=== PATIENT | female | born 1990 | race Caucasian/White ===

== ENCOUNTER 2022-09-20 10:54 | Outpatient (CLI) | payer BC, SELFPAY | END 2022-09-20 10:55 | disposition home or self-care (01) | LOC: FRMREF 10:55 | PROVIDERS: Visit Provider Registered Nurse | DX: Z01.419 Encounter for gynecological examination (general) (routine) without abnormal findings (principal); Z13.6 Encounter for screening for cardiovascular disorders | CPT/HCPCS: 80061 ==

== ENCOUNTER 2023-01-02 13:37 | Outpatient (CLI) | payer BC, SELFPAY ==
--- NOTE | 2023-01-02 14:00 | CRLHL7_ITS ---
For Patients: As a result of the Cures Act, medical imaging exams and procedure reports are released immediately into your electronic medical record. You may view this report before your referring provider. If you have questions, please contact your health care provider. INDICATION: First trimester scan, establish dates. COMPARISON: None. TECHNIQUE: Real-time salmeron-scale imaging of the pelvis was performed. FINDINGS: Sonographic imaging demonstrates a single living intrauterine gestation. The embryo demonstrates a regular cardiac rate measuring 163 beats per minute. The embryo`s crown-rump length measurement of 1.4 cm corresponds to a gestational age of 7 weeks 4 days with a sonographic due date of 08/17/2023. There is a normal-appearing yolk sac. There are no gross abnormalities noted within the embryo at this early state of development. The gestational sac has a normal appearance. There is a 2.6 x 0.5 x 2.5 cm perigestational hemorrhage. The amount of fluid within the sac appears appropriate for gestational age. The cervix is closed. The myometrium appears normal. The ovaries are of normal size. Corpus luteal cyst left ovary. There are no suspicious fluid collections noted in the cul-de-sac. IMPRESSION: Single living intrauterine with sonographic gestational age 7 weeks 4 days and sonographic due date 08/17/2023. Dictated by Guillermo Hendrickson MD @ 01/02/2023 3:21:45 PM (Electronically Signed)
== END 2023-01-02 13:38 | disposition home or self-care (01) ==
LOC: US 13:39
PROVIDERS: PCP Registered Nurse; Visit Provider Registered Nurse
DX: Z34.91 Encounter for supervision of normal pregnancy, unspecified, first trimester (principal); Z3A.08 8 weeks gestation of pregnancy
CPT/HCPCS: 76817; 86592; 86703; 86762; 86787; 86803; 86850; 86900; 86901; 87086; 87340; 87491; 87591

== ENCOUNTER 2023-01-02 14:42 | Outpatient (CLI) | payer BC, SELFPAY ==
[2023-01-02 19:04] LABS: Chlamydia DNA Amplified* NOT DETECTED (No Detected); GC DNA Amplified* NOT DETECTED (No Detected)
== END 2023-01-02 14:43 | disposition home or self-care (01) ==
PROVIDERS: PCP Registered Nurse; Visit Provider Registered Nurse
DX: Z34.91 Encounter for supervision of normal pregnancy, unspecified, first trimester (principal); Z3A.08 8 weeks gestation of pregnancy
CPT/HCPCS: 86592; 86703; 86762; 86787; 86803; 86850; 86900; 86901; 87086; 87340; 87491; 87591

== ENCOUNTER 2023-03-28 11:56 | Outpatient (CLI) | payer BC, SELFPAY | END 2023-03-28 11:57 | disposition home or self-care (01) | LOC: FRMREF 11:58 | PROVIDERS: Visit Provider Registered Nurse | DX: Z34.92 Encounter for supervision of normal pregnancy, unspecified, second trimester (principal); Z3A.19 19 weeks gestation of pregnancy | CPT/HCPCS: 87086 ==

== ENCOUNTER 2023-05-22 13:34 | Outpatient (CLI) | payer BC, SELFPAY | END 2023-05-22 13:35 | disposition home or self-care (01) | LOC: NFLDREF 05-26 05:27 | PROVIDERS: Visit Provider Advanced Practice Midwife | DX: Z34.93 Encounter for supervision of normal pregnancy, unspecified, third trimester (principal); B00.9 Herpesviral infection, unspecified; O34.211 Maternal care for low transverse scar from previous cesarean delivery; Z3A.27 27 weeks gestation of pregnancy | CPT/HCPCS: 86592 ==

== ENCOUNTER 2023-06-26 13:41 | Outpatient (CLI) | payer BC, SELFPAY ==
--- NOTE | 2023-06-26 14:00 | CRLHL7_ITS ---
For Patients: As a result of the Century Cures Act, medical imaging exams and procedure reports are released immediately into your electronic medical record. You may view this report before your referring provider. If you have questions, please contact your health care provider. INDICATION: Third trimester scan, evaluate growth. Follow-up cord insertion into the placenta. COMPARISON: 03/25/2023 TECHNIQUE: Real time salmeron scale imaging of the fetus was performed. FINDINGS: Sonographic imaging demonstrates a single living intrauterine gestation. Fetus demonstrates a regular cardiac rate of 131 beats per minute. Fetus has a vertex position. The placenta lies fundal posterior. Amniotic fluid volume appears normal and there is a single deepest vertical pocket: 4.4 cm. The estimated weight is 1999gm which lies at the 39th %. On the prior OB ultrasound exam dated 03/25/2023 the estimated weight was at the 63rd%. BPD 32nd percentile. HC 14th percentile. AC 49th percentile. FL 41st percentile. The HC/AC ratio measures 1.03 range (0.96-1.12). IMPRESSION: Sonographic gestational age 32 weeks 4 days and sonographic due date 08/17/2023. Good correlation with dates. Normal interval growth. Estimated weight 39th percentile. Abdominal circumference 49th percentile. Placental cord insertion 1.9 cm from the internal cervical os. Previously, this measured 7 millimeters. Dictated by Guillermo Hendrickson MD @ 06/27/2023 10:39:43 AM (Electronically Signed)
== END 2023-06-26 13:42 | disposition home or self-care (01) ==
LOC: US 13:42
PROVIDERS: Visit Provider Obstetrics & Gynecology
DX: Z34.93 Encounter for supervision of normal pregnancy, unspecified, third trimester (principal); O43.193 Other malformation of placenta, third trimester; Z3A.32 32 weeks gestation of pregnancy
CPT/HCPCS: 76816

== ENCOUNTER 2023-07-17 14:26 | Outpatient (CLI) | payer BC, SELFPAY | END 2023-07-17 14:27 | disposition home or self-care (01) | LOC: NFLDREF 07-21 06:28 | PROVIDERS: Visit Provider Advanced Practice Midwife | DX: Z34.83 Encounter for supervision of other normal pregnancy, third trimester (principal) | CPT/HCPCS: 87081; 87653 ==

== ENCOUNTER 2023-07-24 12:41 | Outpatient (CLI) | payer BC, SELFPAY ==
--- NOTE | 2023-07-24 13:00 | CRLHL7_ITS ---
For Patients: As a result of the Century Cures Act, medical imaging exams and procedure reports are released immediately into your electronic medical record. You may view this report before your referring provider. If you have questions, please contact your health care provider. INDICATION: Advanced maternal age. Check growth. TECHNIQUE: Limited transabdominal two-dimensional salmeron-scale ultrasound examination. COMPARISON: 06/26/2023 FINDINGS: There is a living fetus in vertex lie with gestational age of 36 weeks 4 days by LMP and 35 weeks 2 days by today`s measurements. EDC based on LMP is 08/17/2023. BPD: 8.5 cm, 34 weeks 2 days Head circumference: 31.4 cm, 35 weeks 1 day Abdominal circumference: 33.4 cm, 37 weeks 2 days Femur length: 6.7 cm, 34 weeks 3 days The weight is estimated at 2828 grams, the 39th percentile. The biophysical profile score is 8/8. The heart rate is measured at 129 beats per minute and the rhythm appears regular. The amniotic fluid volume is within normal limits with single deepest pocket or 6.7 cm. The placenta is fundal/posterior and superior to the cervical os. There is no evidence of previa. IMPRESSION: 1. Living fetus in vertex lie with gestational age of 36 weeks 4 days by LMP and 35 weeks 2 days by today`s measurements. EDC based on LMP is 08/17/2023. 2. weight estimated at 2828 grams, the 39th percentile. 3. Biophysical profile score is 8/8. Dictated by Josh Lindsey MD @ 07/24/2023 3:47:18 PM (Electronically Signed)
== END 2023-07-24 12:42 | disposition home or self-care (01) ==
LOC: US 12:41
PROVIDERS: Visit Provider Advanced Practice Midwife
DX: O09.523 Supervision of elderly multigravida, third trimester (principal); Z3A.35 35 weeks gestation of pregnancy
CPT/HCPCS: 76816; 76819

== ENCOUNTER 2023-08-06 00:25 | Inpatient (IN) | payer BC, SELFPAY ==
[2023-08-05] VITALS (26 sets, daily range): BP systolic 128–137; BP diastolic 82–95; PULSE 68–107; TEMP 37.1; O2SAT 93–99
[2023-08-05] MEDS: LACTATED RINGERS 1000 ML 1,000 ML IV (20:45)
[2023-08-05] MEDS: hydrOXYzine pamoate 25 MG CAPSULE 100 MG PO (22:16)
[2023-08-05] MEDS: MORPHINE 10 MG/ML inj IM (22:17)
[2023-08-05] MEDS: LACTATED RINGERS 1000 ML 1,000 ML 500 ML IV (22:58)
[2023-08-06] VITALS (17 sets, daily range): BP systolic 97–123; BP diastolic 59–86; PULSE 70–102; RESP 16–18; TEMP 36.6–37.2; O2SAT 96–99; BMI 28.5
--- NOTE | 2023-08-06 00:48 | P.LDBA_ITS ---
Subjective History of Present Illness Date Seen: 08/06/23 Narrative: Uzma is being admitted to Labor and Delivery for labor. She is a 33 year old at 38.3 weeks gestation. She has a history of C/S and desires a TOLAC. Her full history and physical was dictated by Onofre Martins CNM on 07/31/23. Please see this for details. She arrived this evening complaining of frequent contractions although at that time she was able to talk easily through them and only felt some of her contractions. She was sienna very frequently about every 1-1.5 minutes on arrival. She was given a fluid bolus and contractions then spaced out to every 2-3 minutes but once the fluid bolus stopped her contractions returned in frequency and continued to intensify. Discussed Morphine and Vistaril for rest and she agreed to this. She had made minimal cervical change at that time. Not long after Morphine and Vistaril was given FHR showed late variables which resolved with position change and an additional fluid bolus. Decision was made to admit her for labor and possible augmentation if needed. Repeat cervical exam showed she was 4/100%/-2 with a bulging bag. On admission her initial BP was 137/94 with recheck in 15 minutes BP was 128/82. Specific Issues/Plans (2 full term deliveries, 2 elective terminations, has 3 children --1 set of twins--) Spouse: Chan. Children: Kris Valentin Ella. Baby: Dariel Cedeño 07/31/23 H& P done by Onofre Martins 1. History of delivery. (1st NVD. Twin delivery: 1st vaginal, 2nd ) -Desires vaginal after -TOLAC consent: Consult completed on 07/12/23, consent signed 07/18 -USN for growth at 32 weeks due to marginal insertion of the cord: EFW:39th percentile, umbilical cord insertion described to be 1.9cm from placental edg e/eccentric. -Chance of successful : 87.2% -Growth 36 wks: EFW 39% 2. Advanced maternal age Genetic screening: Declined Level 2 ultrasound recommended. Order placed. 3. History of depression. Doing well at 1st OB. GLENIS 1, PHQ 2. 4. Marginal cord insertion on 20 week level 2 FAS Recommend 28-32 week growth then Q4 weeks: 32 wks: EFW 39%, cord 1.9cm from edge 36 wks: ordered with BPP Consider weekly BPP or NST at 36 wks - declines. 5. Dark mole left upper abdomen. Referral placed for DERM. 6. Hx of breast augmentation Covid: vaccinated, not boosted. Recommended. Flu: 03/28/23 Tdap: 06/12/23 RSV: OB - Problem Based A/P Additional Plan (1) Pain during labor: Status: Acute (2) Desires (vaginal after ) trial: Status: Acute (3) Advanced maternal age in multigravida: Status: Acute Plan Assessment:?? at 38.3 weeks gestation?? GBS negative? Patient is coping well with challenges of labor.?? Labor type: Spontaneous, Early labor? Category 2 FHR pattern.? complicated by: 1. History of delivery. (1st NVD. Twin delivery: 1st vaginal, 2nd ) -Desires vaginal after -TOLAC consent: Consult completed on 07/12/23, consent signed 07/18 -USN for growth at 32 weeks due to marginal insertion of the cord: EFW:39th percentile, umbilical cord insertion described to be 1.9cm from placental edge/eccentric. -Chance of successful : 87.2% -Growth 36 wks: EFW 39% 2. Advanced maternal age Genetic screening: Declined Level 2 ultrasound recommended. Order placed. 3. History of depression. Doing well at 1st OB. GLENIS 1, PHQ 2. 4. Marginal cord insertion on 20 week level 2 FAS Recommend 28-32 week growth then Q4 weeks: 32 wks: EFW 39%, cord 1.9cm from edge 36 wks: ordered with BPP Consider weekly BPP or NST at 36 wks - declines. 5. Dark mole left upper abdomen. Referral placed for DERM. 6. Hx of breast augmentation Plan:?? * ?Admit to L & D? * Planning TOLAC, consent signed * IV access: SL for TOLAC * Monitoring per policy: continuous ? * Candidate for analgesia of choice.? Undecided about pain management * Expectant management at this time * Monitor blood pressures. Consider labs if continue to be elevated.? * Patient encouraged to reposition and ambulate to promote physiologic labor and . * Anticipate ? Delivery/Labor/Induction Plan Plan: expectant management OB Exam Physical Exam Vital signs: Temp Pulse BP Pulse Ox 98.8 F 70 120/86 99 08/05/23 19:30 08/06/23 00:43 08/06/23 00:43 08/06/23 00:09 Narrative: Vitals Reviewed Constitutional:? Alert and oriented x3 HEENT:? Normocephalic, atraumatic Neck:? Supple Lungs:? Clear to auscultation bilaterally Heart:? Regular rate and rhythm, no murmur, rub or gallop Abdomen:? Soft, nontender, and gravid. Vertex by Shemar's, confirmed with cervical exam. Extremities:? No edema or erythema Cervix: 4 cm/100%/-2 station/vertex NST: 130 bpm/moderate variability/-accelerations/-decelerations/Moderate contractions Detailed Labor and Delivery Exam Patient Gravid: Yes Fetus (Single) Amniotic Membrane Status: intact
[2023-08-06] MEDS: OXYTOCIN 30 unit/500 ML in NS 30 UNIT/500 ML BAG 300 UNIT IVPB (01:31)
--- NOTE | 2023-08-06 01:45 | W.PM.VAGDE_ITS ---
OB Procedure Vag Delivery Mother Details Mother Details: The patient is a 33 year-old, 5, Para 3, admitted on 08/06/23 at 38.3Days gestation. : 5 Para: 4 Weeks Gestation: 38.3 Admission Date: 08/06/23 Additional Details Amniotic Membrane Status: SROM (with delivery of the head) Amniotic Membrane Rupture Date: 08/06/23 Amniotic Membrane Rupture Time: :20 Amniotic Membrane Fluid Description: Clear Analgesia/Anesthesia Type: None Waterbirth: No Pitcoin: No Intrapartal Events: None Labor Onset: 00:45 Complete: 01:13 Pushin:13 Heart: heart tones during second stage were Category II Delivery Details Delivery Date: 08/06/23 Delivery Time: :20 Route of delivery: Gender: Male Infant Viability: Alive; Heart Rate Present Position at Delivery: OA Delivery Details: Uzma is a 33?y.o?at 38.3 weeks.? She came in laboring with frequent but not painful contractions. She was watched in triage over the course of approximately 4 hours then the decision was made to admit her for augmentation of labor. She was given Morphine and Vistaril for rest and pain while in triage at 2216. She had made minimal environmental change analyst 3 hours from 1.5cm to 2cm but EFM showed Category II strip with spontaneous decelerations and occasional lates. With her history of section it was decided she should stay and be admitted. When moved to the labor room she stated she felt things were intensifying again, discussed placing a Cook catheter if no change in cervix but this was not done as she was then found to be 4 cm/100%/-2 at 0045. Pt labored and not long after asked for an epidural. At 0111 she was heard involuntarily bearing down. Cervical exam was anterior lip. One contraction later she was complete and pushed effectively in right tilt position. ? She became complete at 0111.??She pushed in right tilt positions effectively.? Spontaneous vaginal delivery at 0120 of?a viable?male .??Delivered in vertex OA position, SROM with delivery of the head, clear fluid noted.??Shoulders delivered easily.??? placed on maternal abdomen, there was minimal respiratory effort and the?Cord?was clamped and cut after a 30 second delay and infant brought to the warmer for resuscitation.??Nose and mouth were bulb suctioned.? Shoulder dystocia: no? Nuchal cord: no? Meconium stained?fluid: no? Water : no? ? ? 3 at 1 minute and 2 at 5 minutes and 8 at 10 minutes. Given CPAP and PPV. ? Placenta delivered spontaneously and?complete?at 0137 with a?3 vessel?cord.?? Bleeding controlled with fundal massage and?pitocin?for AMTSL.? ? Mother and infant were stable after delivery.? ? Lacerations:? ?First laceration, not bleeding, not repaired, discussed with patient. Small abrasion right periurethral area, not bleeding and not repaired. ? Bleeding?post delivery?was: minimal. ?The fundus was firm to palpation.? Blood loss: 25?mL.? Blood loss measurement type: QBL? ? ? Sponge,?lap?and needles counts are correct.? Mother and were stable after delivery.? 1 Minute Interval Total Score: 3 5 Minute Interval Total Score: 2 10 Minute Interval Total Score: 8 Additional Details Shoulder Dystocia: No Placenta Delivery Time: 01:37 Placental Delivery Description: Spontaneous Procedure Done: Global Blood Loss: 25 Laceration: Perineal - 1st Degree (not repaired, hemostatic) Blood Loss Measurement Type: QBL Bakri Used: No Sponge/Need Count Correct: Yes Cord Vessel Description: 3 Vessels Event Summary Status: Mother and infant were stable after delivery. Disposition: floor
[2023-08-06 02:35] LABS: Basophils Percent Auto 0.1 % (0.0-3.0); Eosinophils Percent Auto 0.3 % (0.0-7.0); Hematocrit 34.9 % (33.0-51.0); Hemoglobin* 11.3 gm/dL (12.0-16.0); Immature Granulocytes Pct Auto 0.4 %; Lymphocytes Percent Auto 9.3 % (20-44); Mean Corpuscular HGB Conc 32 gm/dL (32-36); Mean Corpuscular Hemoglobin 28 pg (26-34); Mean Corpuscular Volume 85 fL (80-100); Monocytes Percent Auto 5.2 % (0.0-11.0); Neutrophils Percent Auto 84.7 % (42.0-72.0); Platelet Count* 223 K/uL (140-440); RDW Coefficient of Variation % 13.9 % (11.5-15.5); Red Blood Count 4.11 m/uL (4.00-5.20); White Blood Count* 15.28 K/uL (4.50-11.00)
[2023-08-06 02:40] LABS: Slide Review Reflex No
[2023-08-06] MEDS: IBUPROFEN 600 MG TABLET PO ×2 (03:25→15:53)
[2023-08-06] MEDS: LANOLIN CREAM 1 APPLIC TOPICAL (15:54)
[2023-08-06] MEDS: DOCUSATE SODIUM 100 MG CAPSULE PO (16:00)
[2023-08-07 01:00] VITALS: BP 96/60; PULSE 95; RESP 18; TEMP 36.5; O2SAT 98
--- NOTE | 2023-08-07 07:34 | PM.OBPNVD1 ---
OB - PN:Subj Subjective Date Seen: 08/07/23 Narrative: Uzma is a 33 y.o. G 5 P 3024 who was admitted to L & D for spontaneous onset of labor. ?She had a NVD that was uncomplicated. The patient feels well. ?The pain is well controlled with current medications. ?She has no new complaints. ?She is breast feeding and reports things are going well. She does desire to see today. the patient has done well.? Vitals have been stable.? She has remained afebrile.? Has a good appetite, is tolerating a general diet. ?She is voiding without difficulty.? She is passing gas and has not had a bowel movement.? She is ambulating and denies any dizziness.? Has small amount of rubra lochia. OB - PN: Obj Exam Physical Exam: Vital signs: Temp Pulse Resp BP Pulse Ox O2 Del Method 97.7 F 95 18 96/60 98 Room Air 08/07/23 01:00 08/07/23 01:00 08/07/23 01:00 08/07/23 01:00 08/07/23 01:00 08/07/23 01:00 Narrative: GENERAL APPEARANCE:? normal affect, alert, no distress MOOD:? appropriate CHEST:? clear to auscultation HEART:? regular rate and rhythm ABDOMEN:? soft, non-tender the uterine fundus is At Umbilicus, Midline and is appropriate for the stage of recovery. PERINEUM:? mild edema of the perineum, there is a Perineal Laceration,?1st degree, that is healing well. EXTREMITIES:? normal and no edema OB - PN: A/P Delivery Assessment and Plan (1) care and examination immediately after delivery: Status: Acute (2) Lactating mother: Status: Acute (3) Elevated BP without diagnosis of hypertension: Status: Acute Plan 08/05/23: BP 135/95 at 1927; Normotensive since Plan day: 1 Plan: routine care Comments: plan: Anticipate discharge tomorrow. , may see if needed Hgb 11.3. Elevated Blood pressure without diagnosis of HTN
[2023-08-07] MEDS: DOCUSATE SODIUM 100 MG CAPSULE PO (08:56)
[2023-08-07 09:19] VITALS: BP 106/76; PULSE 106; RESP 18; TEMP 36.9; O2SAT 96
[2023-08-07 16:59] VITALS: RESP 18
[2023-08-07] MEDS: IBUPROFEN 600 MG TABLET PO (21:29)
[2023-08-08 00:20] VITALS: BP 107/74; PULSE 79; RESP 18; TEMP 36.6; O2SAT 96
--- NOTE | 2023-08-08 07:48 | P.DS_ITS ---
DS: Providers Provider Date Seen: 08/08/23 Date of admission: 08/06/23 00:25 Primary care physician: Not a Local Provider Admitting Clinician: Brandie Anna CNM Attending Physician on discharge: Brandie Anna CNM Date of Discharge: 08/08/23 DS: Diagnosis Discharge Diagnosis (1) care and examination immediately after delivery: Status: Acute (2) Lactating mother: Status: Acute (3) (vaginal after ): Status: Acute (4) Elevated BP without diagnosis of hypertension: Status: Acute Exam Narrative: Exam Narrative: GENERAL APPEARANCE:? normal affect, alert, no distress MOOD:? appropriate CHEST:? clear to auscultation HEART:? regular rate and rhythm ABDOMEN:? soft, non-tender the uterine fundus is 1 cm below Umbilicus, Midline and is appropriate for the stage of recovery. PERINEUM:? mild edema of the perineum, there is a Perineal Laceration,? 1st degree that is healing well. EXTREMITIES:? normal and no edema Const: Vital Signs, click to edit/add: Vital Signs - 24 hr 08/07/23 09:19 08/07/23 16:59 08/08/23 00:20 Temperature 98.5 F 97.8 F Pulse Rate [Pulse Oximeter] 106 H 79 Respiratory Rate 18 18 18 Blood Pressure [Le ft Arm] 106/76 107/74 Pulse Oximetry 96 96 Oxygen Delivery Me thod Room Air Room Air Documenting provider has reviewed patient's vital signs: yes OB - DS: Summary Hospital Course Hospital Course: Uzma is a 33 y.o. who was admitted to L & D for labor. ?She had an uncomplicated .?The patient feels well. ?The pain is well controlled with current medications. ?She has no new complaints. ?She is breast feeding and reports things are going well.? the patient has done well.? Vitals have been stable.? She has remained afebrile.? Has a good appetite, is tolerating a general diet. ?She is voiding without difficulty.? She is passing gas and has had a bowel movement.? She is ambulating and denies any dizziness.? Has Small amount of rubra lochia. ?She is planning partner vasectomy for prevention. Peripartum Data Infant delivery method: Vaginal Laceration description: Perineal - 1st Degree (no repair) complications: none Gender: Male Infant Discharge Plan: Home Status at Discharge Functional status at discharge: independent ambulation Overall status at discharge: patient is progressing back to baseline Time Spent with Patient Time attestation: Total time spent providing and/or coordinating discharge services: Time spent: Less than 30 minutes Discharge Plan Discharge Disposition: Home, Self-Care Date of Admission: 08/06/23 00:25 Attending Provider on Discharge: Brandie Anna Primary Care Provider: Provider,Not a Local Condition: Stable Anticipated Discharge Date/Time: 08/08/23 12:00 Discharge Medications: New acetaminophen 500 mg Tablet 1,000 mg PO Q6H PRNQty: 0 0RF docusate sodium 100 mg Capsule 100 mg PO DAILY Qty: 90 4RF ibuprofen 600 mg Tablet 600 mg PO Q6H PRNQty: 60 0RF Continued valacyclovir [Valtrex] 500 mg tablet 500 mg PO BID PRN (Reason: oral cold sore) Qty: 12 1RF Rx Instructions: Take BID x3 days for outbreak at onset of lesion. mupirocin 2 % ointment 1 applic topical BID Qty: 22 0RF Rx Instructions: Apply topically to affected area twice daily for 14 days DHA 200 mg capsule 200 mg PO DAILY Discharge Orders: Discharge Order (Routine); Ordered 08/08/23 Ordered By: Brandie Anna Patient Education: OB Over the Counter Medication Information, OB Vaginal/Breast Feeding Additional Instructions: Discharge instructions were reviewed with the patient including signs and symptoms of infection and home going medications Nothing vaginally for 6 weeks: no tampons or intercourse Off Work or School for 6 weeks 2-week visit: discuss feeding concerns, review control options and screen for anxiety/depression. 6-week visit for an annual exam. consultation services are available to all mothers and babies for the first year after delivery.? To make an appointment, please call [phone]. Activity Level: Activity as Tolerated Discharge Diet: Regular Follow Up Appointments: Provider,Not a Local [Primary Care Provider] - [facility] [Provider Group] Forms: [facility] Info Instructions
[2023-08-08 09:06] VITALS: BP 109/49; PULSE 75; RESP 18; O2SAT 96
== END 2023-08-08 13:15 | disposition home or self-care (01) | DRG 560 ==
LOC: OB OUT 00:25 → OB 08-07 08:42
PROVIDERS: Admitting Provider Advanced Practice Midwife; Visit Provider Advanced Practice Midwife
DX: O34.211 Maternal care for low transverse scar from previous cesarean delivery (principal); R03.0 Elevated blood-pressure reading, without diagnosis of hypertension; O70.0 First degree perineal laceration during delivery; O99.344 Other mental disorders complicating childbirth; F32.A Depression, unspecified; Z37.0 Single live birth; Z3A.38 38 weeks gestation of pregnancy
CPT/HCPCS: 36415; 85025; 86850; 86900; 86901; G0463; A9270; J2270; J2371; J7120

== ENCOUNTER 2025-06-19 15:20 | Emergency (ER) | payer BC, SELFPAY ==
[2025-06-19] VITALS (13 sets, daily range): BP systolic 132; BP diastolic 95; PULSE 67–101; RESP 18; TEMP 36.9; O2SAT 96–100; BMI 18.9
--- OUTSIDE RECORDS SUMMARY | 2025-06-19 15:21 | XMS_ITS | Clinical Summary ---
Author Organization [facility] Address [facility] [place] [address] Care Team Providers Care Shot Peening Operator Name Role Phone , No Primary Primary Care Provider Debbie Medina RECEIVER BULK SYSTEM Unavailable [phone] Allergies No known active allergies Medications MedicationSigDispense QuantityRefillsLast FilledStart DateEnd DateStatus valACYclovir (VALTREX) 500 mg tablet TAKE ONE TABLET BY MOUTH EVERY DAY (FOR DAILY SUPPRESSION)06/28/2021ctive etonogestrel subdermal implant (NEXPLANON) 68 mg implant Inject 1 Each subdermal one time for 1 dose. 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 Yes NURSING VISIT ALERT: Create and link episode at day of visit. Document in Dating section. GA Final VIRIDIANA by Early Ultrasound LMP Date: 11/03/22 VIRIDIANA: 08/10/23 Early US: Date: 01/02/23 GA: 7w4d VIRIDIANA: 08/17/23 PrePregnancy Weight: 100 lb Height: 5'3 BMI: 17.7 PLANS & FUTURE APPOINTMENTS: ULTRASOUND/GROWTH PLAN: - Through: - Growth: Next TESTING PLAN: - Testing: Through DELIVERY PLAN: - Scheduled delivery: - Preferred delivery location: PRIMARY DIAGNOSIS: 33 y.o. Estimated Date of Delivery: 08/17/23 MATERNAL AMA 2008 Term 2012 Term Twins - followed by emergent LTCS Anxiety/Depression PREVIOUS ULTRASOUNDS: (PCP) 01/02/23 7w4d ECHO: REFERRING PHYSICIAN/PHONE/LAST UPDATE: Debbie Alan NP [place] [phone] Primary MD approves scheduling of recommended ultrasounds/testing: Yes SPECIALISTS/CONSULTS: Include: Specialty MD Clinic Name Phone# [place] and ADDED TO PATIENT CARE TEAM Yes GENETICS: Declines/Not Done CARE COORDINATION: PERTINENT LABS: Labs reviewed? Yes Normal? Yes Blood type: O positive Antibody screen: Neg PERTINENT MEDS: PROCEDURES: IF FGR <10% or EFW <2000 grams: Add FGRPCOM PLAN OF CARE: Original and updated POC Suicidal hxrpgikw79/01/2012 Overview (07/01/2011): May 2011. See [facility] notes. Immunizations ImmunizationAdministration DatesNext QmkLTX5101/13/1993MMR1993,04/22/1989 Oral Polio Yekiqnp5101/13/1993 Social History Tobacco UseTypesPacks/DayYears UsedDateSmoking Tobacco: FormerCigarettes Smokeless Tobacco: NeverAlcohol UseStandard Drinks/WeekCommentsNot Asked0 (1 standard drink = 0.6 oz pure alcohol)CommentsUnknownSex and Gender InformationValueDate RecordedSex Assigned at BirthNot on fileLegal SexFemale 03/04/2018 3:22 PM CDTGender IdentityNot on fileSexual OrientationNot on file Obstetrics History GravidaParaTermPretermABIABSABEctopicMultipleLivingLive [id number] GATotal LaborLabor/2nd/2frTmelcqAlbHgcnAzehXJGIboR1O3UsrtOfqe4660YzvaTybMihmno 0700NuknXaaSbifpd4179HutmMP-LCdepeYnkcpaIoqgzin Last Filed Vital Signs Vital SignReadingTime TakenCommentsBlood Pjsxeyjc953/7305/24/2022 2:07 PM 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 Ypikb910505/24/2022 2:07 PM FCHIbdmdgjzwnt41.9 ??C (98.4 ??F)05/24/2022 2:07 PM CSTRespiratory Kijz377407/24/2021 2:07 PM CSTOxygen Ejccxxeppm94%05/24/2022 2:07 PM CSTInhaled Oxygen Concentration--Pszcuc51.4 kg (109 lb)05/24/2022 2:07 PM 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 Ldgvjw794.6 cm (5' 4)05/24/2022 2:07 PM CSTBody Mass Index18.7105/24/2022 2:07 PM 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 Plan of Treatment Health MaintenanceDue DateLast DoneCommentsTetanus htskona1201/12/1999Depression screening for age 12+2000HIV for age 15-65001/12/2003Hepatitis C screening for age 18-7901/12/2006Hepatitis B series for 19+ (1 of 3 - 19+ 3-dose series) 01/12/2007HPV series for age 9-45 (1 - 3-dose SCDM series)01/12/2015BMI (ht and wt on same day) for age 18+2COVID-19 vaccine series ( - 2024- season)2025Influenza Vaccine (#1)2025Pap test for age 21-65 6009/20/2022, 09/20/2022, 02/28/2018, Additional history exists Pneumococcal series for age 6-49Aged OutNo longer eligible based on patient's age to complete this topic Procedures Procedure NamePriorityDate/TimeAssociated DiagnosisCommentsHPV HIGH RISKRoutine 09/20/2022 11:00 AM CDT from Last 3 Months or Most Recently Relevant to Health Maintenance Results * HPV HIGH RISK (09/20/2022 11:00 AM CDT)ComponentValueRef RangeTest Method Analysis TimePerformed AtPathologist SignatureTYPE 16NegativeNegative 09/24/2022 10:52 AM [facility] LABORATORYTYPE 18 WncdsrycQzikqysn01/27/2023 10:52 AM [facility] LABORATORYOTHER HIGH RISK EWFNOFfbrgcreWtbsqwlq84/27/2023 10:52 AM [facility]AL LABORATORYSpecimen (Source)Anatomical Location / LateralityCollection Method / VolumeCollection TimeReceived TimeOther (Cervical)09/20/2022 11:00 AM CDT09/21/2022 10:04 AM CDT Narrative [facility] - 09/24/2022 10:52 AM CDT HPV types 16, 18, 31, 33, 35, 39, 45, 51, 52, 56, 58, 59, 66 and 68 DNA were undetectable or below the pre-set threshold. Methodology: Overlay[employer] Maegan 4800 HPV Test Authorizing ProviderResult TypeResult StatusChrisanna Alan NPMICROBIOLOGY Final ResultPerforming OrganizationAddressCity/State/ZIP CodePhone Number [facility] [address] [place] [address], from Last 3 Months or Most Recently Relevant to Health Maintenance Insurance * Guarantor: Felipa Jackson TypeRelation to PatientDate of BirthPhone Billing AddressPersonal/YctrtaOkfb1990 [address] [place] [address] * Guarantor: Felipa GRESHAM TypeRelation to PatientDate of BirthPhone Billing AddressPersonal/L[address]vai[address] [place] [address] Care Teams Team MemberRelationshipSpecialtyStart DateEnd Date , No Primary . PCP - Evwrasn75/21/08 Debbie Alan, SPNECER [address] [place] [address] Nurse Practitioner03/01/23
--- NOTE | 2025-06-19 15:52 | ED.ABDPAIN ---
HPI - Abdominal Pain General Time Seen by Provider: 15:52 Date Seen: 06/19/25 Chief Complaint: Abdominal Pain Stated Complaint: Severe abdominal Pain Time Seen by Provider: 06/19/25 15:46 Source: patient and RN notes reviewed Mode of arrival: ambulatory Limitations: no limitations History of Present Illness HPI narrative: This 35-year-old female had sudden onset of central lower pelvic pain that she felt was in her uterine area starting around 130 today. She was out, had taken her kids to see Miriam, she almost could not walk it hurts so much. Walking, standing really hurt. She has noted no fevers. She has had a prior but no other abdominal surgeries. She has had 4 pregnancies. Her had a vasectomy about 2 years ago after the her last child. She had Nexplanon prior but has been removed. Her menstrual cycles have returned to normal, does not have any significant cramping with them. She is not aware of history of ovarian cyst. She states she has terrible at tracking her cycle, maybe had her period about 2 and half weeks ago. She has nausea with her current symptoms but no vomiting. She did have 2 stools this morning, little bit runny which is a little atypical for her. No urinary symptoms. She is not aware of anybody in the family with history kidney stones, she herself has never had any. She again has not noticed any urinary changes. She does note that they had intercourse last night, there was no pain with it. She tried a warm shower when she got home, has heating pad on her lower abdomen. elicited complaint: abdominal pain Related Data Home Medications ?Medication ?Instructions ?Recorded ?Confirmed docosahexaenoic acid 200 mg 200 mg PO DAILY 01/02/23 08/05/23 capsule ( DHA) Previous Rx's ?Medication ?Instructions ?Recorded valacyclovir 500 mg tablet 500 mg PO BID PRN oral cold sore 06/03/24 (Valtrex) #12 tabs Allergies Allergy/AdvReac Type Severity Reaction Status Date / Time No Known Drug Allergies Allergy Verified 06/19/25 18:43 Review of Systems Status of ROS Reports: 6 or more systems reviewed and unremarkable except as noted in History and below [facility] Medical History (vaginal after ) ?O34.219 - Maternal care for unspecified type scar from previous delivery (ICD-10) Atypical nevus ?D22.9 - Melanocytic nevi, unspecified (ICD-10) Anxiety ?F41.9 - Anxiety disorder, unspecified (ICD-10) Major depressive disorder ?F32.9 - Major depressive disorder, single episode, unspecified (ICD-10) Herpes simplex type 1 infection ?B00.9 - Herpesviral infection, unspecified (ICD-10) History of abnormal cervical Pap smear (2005) ?Z87.42 - Personal history of other diseases of the female genital tract (ICD-10) Surgical History History of vaginal delivery History of colposcopy (05/09/18) ?Z98.890 - Other specified postprocedural states (ICD-10) History of section (06/29/13) ?Z98.891 - History of uterine scar from previous surgery (ICD-10) History of breast augmentation ?Z98.82 - Breast implant status (ICD-10) Family History Grandmother Thyroid disease Social History Narrative: Tobacco use. Occasional EtOH. No illicit drug use. What is your current living situation?: I presently have a place to live Problems where you live: no known problems In the past 12 months, utilities in danger of being shut off: no In past 12 months, lack of transportation kept you from medical appts, meetings, work, or getting things needed for daily living: no In the past 12 mos, have been you worried that your food would run out before you had money to buy more?: never true In the past 12 mos, the food you bought just didn't last and you didn't have money to buy more?: never true Smoking Status: Never smoker How often does anyone, including family, friends and others, physically hurt you: never How often does anyone, including family, friends and others, insult or talk down to you: never How often does anyone, including family, friends and others, threaten you with harm: never How often does anyone, including family, friends and others, scream or curse at you: never Exam Const: Vital Signs, click to edit/add: Vital Signs - 24 hr 06/19/25 15:22 06/19/25 16:32 06/19/25 17:09 Temperature 98.4 F Pulse Rate 79 67 Pulse Rate [Pulse Oximeter] 101 H Respiratory Rate 18 Blood Pressure [Ri ght Upper Arm] 132/95 H Pulse Oximetry 100 100 99 Oxygen Delivery Me thod Room Air 06/19/25 17:15 06/19/25 17:30 06/19/25 17:45 Temperature Pulse Rate 69 69 70 Pulse Rate [Pulse Oximeter] Respiratory Rate Blood Pressure [Ri ght Upper Arm] Pulse Oximetry 96 98 100 Oxygen Delivery Me thod 06/19/25 18:00 06/19/25 18:15 06/19/25 18:30 Temperature Pulse Rate 75 68 69 Pulse Rate [Pulse Oximeter] Respiratory Rate Blood Pressure [Ri ght Upper Arm] Pulse Oximetry 99 99 99 Oxygen Delivery Me thod 06/19/25 18:45 06/19/25 19:00 06/19/25 19:15 Temperature Pulse Rate 68 78 72 Pulse Rate [Pulse Oximeter] Respiratory Rate Blood Pressure [Ri ght Upper Arm] Pulse Oximetry 100 100 100 Oxygen Delivery Me thod 06/19/25 19:30 Temperature Pulse Rate 75 Pulse Rate [Pulse Oximeter] Respiratory Rate Blood Pressure [Ri ght Upper Arm] Pulse Oximetry 100 Oxygen Delivery Me thod This 35-year-old female was seen walking into exam room 7, she was leaning somewhat forward, looked uncomfortable. As she has rested in the bed in exam room 7, is more comfortable appearing. Sclera clear, conjugate gaze. Symmetric facial function. Lungs are clear, good air entry, no wheezing crackles, no tachypnea. She does note sitting up in bed does increase the lower pelvic pain. CV regular rate and rhythm, no murmur, normal S1-S2, no S3-S4. Abdomen is soft, nondistended, normal bowel sounds. I do not feel any organomegaly. She has mild suprapubic pain when palpating over the uterus and bladder area, some right lower quadrant pain. Bimanual examination done, external genitalia normal. She has no cervical motion tenderness, no pain with entering into the vaginal vault. Uterus does not feel significantly enlarged but is mildly tender. I can feel both ovaries, right ovary more tender than the left, both seem to be about the same size on palpation. Documenting provider has reviewed patient's vital signs: yes Course Course ED Course: Have reviewed symptom control with Toradol and Zofran. She is in agreement with this. If we need further pain management, we discussed moving to narcotics but will start with the Toradol and Zofran. We will obtain a pelvic ultrasound looking for uterine or ovarian pathology. Do not feel any definite enlarged ovarian area but ovarian cyst still could be a possibility. She understands we may need to proceed with CT imaging but her presentation is not typical for such things like appendicitis. We will get baseline labs, guide therapy accordingly. She understands and is in agreement with outlined plan at this time. Reevaluation(s) Time of Reevaluation #1: 17:11 Reevaluation #1: Patient is back from US, just received medications, was feeling better after resting here in the bed but notes that the US increased symptoms again. We will see how she responds to the medications. Natural Resource Economist was unclear if there was a piece a bowel up by the right ovary and over the fundus of the uterus. Will need to wait radiology over read on this. Labs back thus far including CBC, lactate, urinalysis without any concerning abnormality. Time of Reevaluation #2: 18:17 Reevaluation #2: Patient overall is better, she still having waves of pain come and go, is not as severe as what it was. Reviewed her ultrasound. We are going to proceed with CT abdomen pelvis with IV contrast just to ensure that we are not missing any other etiology, make sure we are not seeing any active extravasation of blood. She remains hemodynamically stable at this time. She is in agreement to proceed with CT imaging. Time of Reevaluation #3: 20:11 Reevaluation #3: Have reviewed CT imaging, is consistent with the ultrasound with pelvic fluid consistent with a ruptured hemorrhagic cyst. She is doing better. We have discussed conservative management. Vital Signs Vital signs: Initial Vital Signs Temperature 98.4 F 06/19/25 15:22 Temperature Source Temporal Artery Scan 06/19/25 15:22 Pulse Rate 101 H 06/19/25 15:22 Respiratory Rate 18 06/19/25 15:22 Blood Pressure 132/95 H 06/19/25 15:22 Blood Pressure Mean 107 H 06/19/25 15:22 Blood Pressure Position Sitting 06/19/25 15:22 Pulse Oximetry 100 06/19/25 15:22 Oxygen Delivery Method Room Air 06/19/25 15:22 Vital Signs Temperature 98.4 F 06/19/25 15:22 Pulse Rate 101 H 06/19/25 15:22 Respiratory Rate 18 06/19/25 15:22 Blood Pressure 132/95 H 06/19/25 15:22 Pulse Oximetry 100 06/19/25 15:22 Oxygen Delivery Method Room Air 06/19/25 15:22 Temperature 98.4 F 06/19/25 15:22 Pulse Rate 75 06/19/25 19:30 Respiratory Rate 18 06/19/25 15:22 Blood Pressure 132/95 H 06/19/25 15:22 Pulse Oximetry 100 06/19/25 19:30 Oxygen Delivery Method Room Air 06/19/25 15:22 Medications Administered Medications: Discontinued Medications Generic Name Dose Route Start Last Admin Trade Name Freq PRN Reason Stop Dose Admin Ketorolac Tromethamine 15 mg 06/19/25 15:59 06/19/25 17:04 Ketorolac 15 Mg/Ml Inj IVP 06/19/25 16:00 15 mg ONCE ONE Administration Ondansetron HCl 4 mg 06/19/25 15:59 06/19/25 17:04 Ondansetron 2 Mg/Ml Inj IVP 06/19/25 16:00 4 mg ONCE ONE Administration MDM - Abdominal Pain Lab Data Attestation: I reviewed the patient's lab results. Labs: Lab Results 06/19/25 06/19/25 Range/Units 16:18 16:27 WBC 9.37 (4.50-11.00) K/uL RBC 4.43 (4.00-5.20) m/uL Hgb 13.2 (12.0-16.0) gm/dL Hct 38.9 (33.0-51.0) % MCV 88 (80-100) fL MCH 30 (26-34) pg MCHC 34 (32-36) gm/dL RDW Coeff of Jinny 11.9 (11.5-15.5) % Plt Count 304 (140-440) K/uL Neut % (Auto) 61.2 (42.0-72.0) % Lymph % (Auto) 29.5 (20-44) % [place] % (Auto) 5.4 (0.0-11.0) % Eos % (Auto) 3.5 (0.0-7.0) % Baso % (Auto) 0.2 (0.0-3.0) % Neut # (Auto) 5.73 (1.7-7.0) K/uL Lymph # (Auto) 2.76 (0.90-2.90) K/uL [place] # (Auto) 0.50 (0.00-0.90) K/UL Eos # (Auto) 0.33 (0.00-0.50) K/uL Baso # (Auto) 0.02 (0.00-0.30) K/uL Abs Immat Gran (auto) 0.02 (0.00-0.30) K/uL Imm/Tot Granulo (auto) 0.2 % Sodium 134 L (135-149) mmol/L Potassium 3.4 L (3.6-5.1) mmol/L Chloride 103 (96-114) mmol/L Carbon Dioxide 23 (20-32) mmol/L Anion Gap 8 (7-15) mEq/L BUN 6 (5-24) mg/dL Creatinine 0.8 (0.5-1.5) mg/dL Estimated Creat Clear 75.84 Estimated GFR 97 ml/min Glucose 110 (60-115) mg/dL Lactate 0.7 (0.5-1.9) mmol/L Calcium 9.1 (8.4-10.6) mg/dL C-Reactive Protein < 0.5 L (0.5-1.0) mg/dL Urine Color Yellow (Yellow) Urine Appearance Clear (Clear) Urine pH 6.5 (5.0-8.5) Ur Specific [place] 1.010 (1.000-1.030) Urine Protein Negative (Negative) Urine Glucose (UA) Negative (Negative) Urine Ketones Negative (Negative) Urine Blood Negative (Negative) Urine Nitrite Negative (Negative) Urine Bilirubin Negative (Negative) Urine Urobilinogen 0.2 (0.2-1.0) Ur Leukocyte Esterase Negative (Negative) Urine RBC 0-2 (0-2) Urine WBC 0-2 (0-5) Ur Squamous Epith Cells None (None-Few) Urine Bacteria None (None) Urine HCG, Qual Negative (Negative) Imaging Data US pelvis: Attestation: I have reviewed the pertinent imaging results. Radiologist's impression: Patient: GEETA RAMOS Facility:?[facility] Patient ID:?[id number] Site Patient ID:?[id number]. Site :?[id number] Study:?US-Pelvis -06/19/2025 5:18:55 PM Ordering Physician:?Giselle Goode Final Report: Indication: Midline and right side pelvic pain. Technique: Ultrasound pelvis transabdominal and transvaginal for better assessment of the endometrium. Real-time sonographic images with spectral and color Doppler imaging of the ovaries were obtained. Comparison: None. Findings: Uterus: Size: 8 x 5 x 4 cm. Mass: No. Endometrium: Transvaginal imaging was performed to better evaluate the endometrium. Thickness: 7 mm. Mass or fluid collection: No. Right ovary: Size: 4 x 2 x 2 cm. Mass: No. Blood flow: Normal arterial and venous blood flow. Left ovary: Size: 3 x 2 x 2 cm. Mass: No. Blood flow: Normal arterial and venous blood flow. Cul-de-sac and adnexa: Significant free Fluid: Moderate amount of free fluid, some of which appears complex. Mass: No. Impression: Moderate amount of free fluid with internal echogenicity suggesting the possibility of blood products. Findings could be secondary to a ruptured hemorrhagic follicle or cyst. Remainder of the exam is unremarkable. No sign of ovarian torsion. Dictated by Kevin Meyer MD @ 06/19/2025 6:08:38 PM (Electronic Signature) CT scan - abdomen: Attestation: I have reviewed the pertinent imaging results. Radiologist's impression: Patient: GEETA RAMOS Facility:?[facility] Patient ID:?[id number] Site Patient ID:?[id number]. Site :?1990 Study:?CT-Abdomen/Pelvis CT A/P WITH ISOVUE 370 49ML-06/19/2025 6:41:44 PM Ordering Physician:Konrad Goode Final Report: INDICATION: Severe pelvic pain. Ultrasound with possible ruptured hemorrhagic cyst/follicle TECHNIQUE: CT abdomen and pelvis acquired with 49 cc Isovue 370 IV contrast. COMPARISON: Same day pelvic ultrasound. FINDINGS: Lower chest: No suspicious pulmonary nodule or consolidation. Liver: Normal in size and attenuation. No suspicious masses. Gallbladder and bile ducts: No stones or inflammation. No biliary dilatation. Pancreas: No ductal dilatation. No mass or inflammation. Spleen: Normal in size. No masses. Adrenal glands: No nodules. Kidneys: Symmetric enhancement with no perinephric fat stranding. No suspicious masses, stones, or hydronephrosis. GI tract: Stomach is decompressed, limiting evaluation, but appears grossly normal. Small and large bowel is normal in caliber without obstruction. Normal appendix (, ). Vasculature: Abdominal aorta is normal in caliber. Mesenteric arteries are patent. Lymph nodes: No lymphadenopathy. Peritoneum/Abdominal Wall: No sign of mass or infiltration. No free air. Small volume mildly complex pelvic free fluid with Hounsfield unit of 25. Pelvis: Bilateral ovarian follicles/cysts. Bones: Unremarkable for age. IMPRESSION: 1. Small volume mildly complex pelvic free fluid which may be secondary to a ruptured hemorrhagic follicle or cyst as seen on same-day pelvic ultrasound. 2. Otherwise, CT of the abdomen and pelvis is unremarkable. Normal appendix. Please note that all CT scans at this facility use dose modulation, iterative reconstruction, and/or weight-based dosing when appropriate to reduce radiation dose to as low as reasonably achievable. Dictated by Florencia Carlson MD @ 06/19/2025 7:40:14 PM (Electronic Signature) Discharge Plan Discharge Clinical Impression: Rupture of ovarian cyst Patient Disposition: Home, Self-Care Condition: Stable Instructions: Ovarian Cyst (ED) Additional Instructions: Can use Tylenol and ibuprofen per bottle directions as needed for any residual pain. Light activity fine, would certainly not do heavy physical exertion like running for the next week. It is fine to lift your child. If you note severe increase in abdominal pain, feeling lightheaded, dizzy with abdominal pain, do need to seek re-evaluation. You may have some residual pain but it should not be severe like the initial episode, should steadily improve. Can follow-up with your primary care provider to discuss suppression of ovarian cysts if you desire. Typically this would be with control. You can talk to your primary care provider more about this. Activity Level: Activity as Tolerated Prescriptions: No Action DHA 200 mg capsule 200 mg PO DAILY valacyclovir [Valtrex] 500 mg tablet 500 mg PO BID PRN (Reason: oral cold sore) Qty: 12 1RF Rx Instructions: Take BID x3 days for outbreak at onset of lesion. Follow Up/Referrals: Provider,Not a Local [Primary Care Provider, Family Practice] Stand Alone Forms: m2p-labs Info Instructions
--- NOTE | 2025-06-19 15:59 | CRLHL7_ITS ---
For Patients: As a result of the Century Cures Act, medical imaging exams and procedure reports are released immediately into your electronic medical record. You may view this report before your referring provider. If you have questions, please contact your health care provider. Indication: Midline and right side pelvic pain. Technique: Ultrasound pelvis transabdominal and transvaginal for better assessment of the endometrium. Real-time sonographic images with spectral and color Doppler imaging of the ovaries were obtained. Comparison: None. Findings: Uterus: Size: 8 x 5 x 4 cm. Mass: No. Endometrium: Transvaginal imaging was performed to better evaluate the endometrium. Thickness: 7 mm. Mass or fluid collection: No. Right ovary: Size: 4 x 2 x 2 cm. Mass: No. Blood flow: Normal arterial and venous blood flow. Left ovary: Size: 3 x 2 x 2 cm. Mass: No. Blood flow: Normal arterial and venous blood flow. Cul-de-sac and adnexa: Significant free Fluid: Moderate amount of free fluid, some of which appears complex. Mass: No. Impression: Moderate amount of free fluid with internal echogenicity suggesting the possibility of blood products. Findings could be secondary to a ruptured hemorrhagic follicle or cyst. Remainder of the exam is unremarkable. No sign of ovarian torsion. Dictated by Kevin Meyer MD @ 06/19/2025 6:08:38 PM (Electronically Signed)
[2025-06-19 16:26] LABS: Appearance Urine Clear (Clear)
[2025-06-19 16:38] LABS: Lactate* 0.7 mmol/L (0.5-1.9)
[2025-06-19 16:39] LABS: Hematocrit* 38.9 % (33.0-51.0); Hemoglobin* 13.2 gm/dL (12.0-16.0); Immature Granulocytes Abs Auto 0.02 K/uL (0.00-0.30); Immature Granulocytes Pct Auto 0.2 %; Lymphocytes Absolute Auto 2.76 K/uL (0.90-2.90); Mean Corpuscular HGB Conc 34 gm/dL (32-36); Mean Corpuscular Hemoglobin 30 pg (26-34); Mean Corpuscular Volume 88 fL (80-100); RDW Coefficient of Variation % 11.9 % (11.5-15.5); Red Blood Count* 4.43 m/uL (4.00-5.20); White Blood Count* 9.37 K/uL (4.50-11.00)
[2025-06-19 16:42] LABS: Slide Review Reflex No
[2025-06-19] MEDS: ONDANSETRON 2 MG/ML inj 4 MG IVP (17:04)
[2025-06-19 17:06] LABS: Chloride* 103 mmol/L (96-114); Sodium* 134 mmol/L (135-149)
[2025-06-19 17:07] LABS: Potassium* 3.4 mmol/L (3.6-5.1)
[2025-06-19 17:10] LABS: Anion Gap 8 mEq/L (7-15); Blood Urea Nitrogen* 6 mg/dL (5-24); Calcium* 9.1 mg/dL (8.4-10.6); Carbon Dioxide* 23 mmol/L (20-32); Creatinine* 0.8 mg/dL (0.5-1.5); Est. Creatinine Clearance* 75.84; Estimated Glomerular Filt Rate 97 ml/min; Glucose* 110 mg/dL (60-115)
--- NOTE | 2025-06-19 18:17 | CRLHL7_ITS ---
For Patients: As a result of the Century Cures Act, medical imaging exams and procedure reports are released immediately into your electronic medical record. You may view this report before your referring provider. If you have questions, please contact your health care provider. INDICATION: Severe pelvic pain. Ultrasound with possible ruptured hemorrhagic cyst/follicle TECHNIQUE: CT abdomen and pelvis acquired with 49 cc Isovue 370 IV contrast. COMPARISON: Same day pelvic ultrasound. FINDINGS: Lower chest: No suspicious pulmonary nodule or consolidation. Liver: Normal in size and attenuation. No suspicious masses. Gallbladder and bile ducts: No stones or inflammation. No biliary dilatation. Pancreas: No ductal dilatation. No mass or inflammation. Spleen: Normal in size. No masses. Adrenal glands: No nodules. Kidneys: Symmetric enhancement with no perinephric fat stranding. No suspicious masses, stones, or hydronephrosis. GI tract: Stomach is decompressed, limiting evaluation, but appears grossly normal. Small and large bowel is normal in caliber without obstruction. Normal appendix (, 36). Vasculature: Abdominal aorta is normal in caliber. Mesenteric arteries are patent. Lymph nodes: No lymphadenopathy. Peritoneum/Abdominal Wall: No sign of mass or infiltration. No free air. Small volume mildly complex pelvic free fluid with Hounsfield unit of 25. Pelvis: Bilateral ovarian follicles/cysts. Bones: Unremarkable for age. IMPRESSION: 1. Small volume mildly complex pelvic free fluid which may be secondary to a ruptured hemorrhagic follicle or cyst as seen on same-day pelvic ultrasound. 2. Otherwise, CT of the abdomen and pelvis is unremarkable. Normal appendix. Please note that all CT scans at this facility use dose modulation, iterative reconstruction, and/or weight-based dosing when appropriate to reduce radiation dose to as low as reasonably achievable. Dictated by Florencia Carlson MD @ 06/19/2025 7:40:14 PM (Electronically Signed)
[2025-06-19 18:46] LABS: Ur HCG Qualitative* Negative (Negative)
== END 2025-06-19 20:30 | disposition home or self-care (01) ==
PROVIDERS: Emergency Provider Family Medicine
DX: R10.23 Pelvic and perineal pain bilateral (principal); N83.202 Unspecified ovarian cyst, left side; N83.201 Unspecified ovarian cyst, right side; R11.0 Nausea; Z98.891 History of uterine scar from previous surgery
CPT/HCPCS: 36415; 74177; 76830; 76856; 80048; 81001; 81025; 83605; 85025; 86140; 93976; 96374; 96375; 99284; 99285; J1885; J2405; Q9967